=== PATIENT | female | born 1990 | race Caucasian/White ===

== ENCOUNTER → 2018-01-06 | Outpatient (CLI) | payer OTHER ==
[2015-05-23 18:40] VITALS: BP 110/67
--- NOTE | 2018-01-06 18:16 | RAD ---
EXAM: Pelvic sonogram. HISTORY: Pain. TECHNIQUE: Sonographic imaging of the pelvis was performed. The patient deferred transvaginal imaging. COMPARISON: None. FINDINGS: The uterus measures 9.6 x 4.9 x 4.9 cm. The endometrial stripe measures 1.7 cm in thickness. The right ovary measures 3.9 x 2.2 x 2.3 cm. The left ovary measures 3.2 x 2.7 x 3.4 cm. There is normal blood flow within both ovaries. There is no pelvic free fluid. IMPRESSION: 1. Prominent endometrial stripe likely due to the phase of the patient's menstrual cycle. 2. Otherwise, unremarkable transabdominal pelvic sonogram. Electronically signed by: Marilou Peguero MD (01/06/2018 6:13 PM) [facility]
== END | disposition home or self-care (01) ==
LOC: RAD 17:34
DX: R10.2 Pelvic and perineal pain (principal)
CPT/HCPCS: 76856